=== PATIENT | male | born 1955 | race Caucasian/White ===

== ENCOUNTER 2019-02-14 11:30 | Inpatient (IN) ==
[2019-02-28] MEDS ORDERED: Nasal Sanitizer POPSWAB ampule 3 AMP (Nozin) PREOP DOSE ENOS SCH (06:00)
[2019-02-28] MEDS ORDERED: Ketorolac Inj 30 MG, Morphine Inj (Ortho Cocktail) 4 MG, BUPivacaine Inj 0.25% PF 150 MG SPLASH ONE ×3 (06:00)
[2019-02-28] MEDS ORDERED: Lactated Ringers 1,000 ML PRIMARY IV SCH ×2 (06:00→12:15)
[2019-02-28] MEDS ORDERED: LIDOCAINE W/ SODIUM BICARB 0.5 ML SYR SUBD ONE (06:00)
[2019-02-28] MEDS ORDERED: BUPivacaine Liposome/PF (Exparel) Inj 20ml vial INFIL ONE ×2 (06:00→06:57)
[2019-02-28] MEDS ORDERED: ceFAZolin Inj 2gm (Premix) 2 GM/50 ML BAG IV ONE ×2 (06:00→06:17)
[2019-02-28] MEDS ORDERED: Tranexamic Acid 1,000 MG in Sodium Chloride 0.9% 100 ML IV SCH (06:00)
[2019-02-28] MEDS ORDERED: LIDOCAINE W/ SODIUM BICARB 0.5 ML SYR ONE ×2 (06:09→07:30)
[2019-02-28] MEDS ORDERED: Lactated Ringers 1,000 ML PRIMARY IV ONE ×2 (06:09→10:19)
[2019-02-28] MEDS ORDERED: Sodium Chloride 0.9% vial 20 ML ONE (06:56)
[2019-02-28] MEDS ORDERED: BACITRACIN 50,000 UNIT VIAL IRRIG ONE (06:57)
[2019-02-28] MEDS ORDERED: Sodium Chloride 0.9% 500 ML ONE (07:17)
[2019-02-28 07:21] LABS: BILIRUBIN,URINE NEGATIVE (NEG); CLARITY,URINE CLEAR (CLEAR); COLOR,URINE YELLOW (Y); GLUCOSE, URINE (UA) NEGATIVE (NEG); OCCULT BLOOD,URINE SMALL (NEG); PH,URINE 5.5 (5.0-8.5); PROTEIN,URINE NEGATIVE (NEG); UROBILINOGEN,URINE 0.2 EU/dL (0.2)
[2019-02-28] MEDS ORDERED: MIDAZOLAM HCL 2 MG/2 ML VIAL ONE (07:26)
[2019-02-28] MEDS ORDERED: fentaNYL Inj 100 MCG/2 ML VIAL ONE (07:26)
[2019-02-28 07:30] LABS: BACTERIA,URINE RARE; URINE SAMPLE TYPE CLEAN CATCH URINE; WBC,URINE 0
[2019-02-28] MEDS ORDERED: BUPivacaine Inj 0.5% PF (5mg/ml) 30ml vial ONE (07:31)
[2019-02-28] MEDS ORDERED: BUPIVACAINE SPINAL 7.5 MG/1 ML - 2 ML IV ONE (07:44)
[2019-02-28] MEDS ORDERED: EPINEPHrine Inj (1:1,000) 1 mg/ml amp ONE (07:45)
[2019-02-28] MEDS ORDERED: LIDOCAINE HCL 2 % 10 ML JELLY URO-JECT TOPICAL PRN (07:48)
[2019-02-28] MEDS ORDERED: LIDOCAINE HCL 2 % 10 ML JELLY URO-JECT TOPICAL ONE (07:49)
[2019-02-28] MEDS ORDERED: Propofol 2,000 MG/200 ML VIAL IV ONE (08:04)
[2019-02-28] MEDS ORDERED: ePHEDrine Inj 50 MG/ML AMP ONE (08:32)
[2019-02-28] MEDS ORDERED: Sodium Chloride 0.9% vial 40 ML ONE (08:42)
[2019-02-28] MEDS ORDERED: PHENYLEPHRINE 10,000 MCG/1 ML VIAL ONE (09:06)
[2019-02-28] MEDS ORDERED: TRANEXAMIC ACID 1,000 MG / 10 ML VIAL ONE (11:18)
[2019-02-28] MEDS ORDERED: PROPOFOL 10 MG/1 ML (200 MG/20 ML) VIAL IV ONE (11:44)
[2019-02-28] MEDS ORDERED: HYDROmorphone 2 MG/1 ML ONE (12:03)
[2019-02-28] MEDS: HYDROmorphone 2 MG/1 ML IVP PRN ×2 (12:07→12:31)
--- NOTE | 2019-02-28 12:11 | CRNA.PROGR ---
Anesthesia Time - Procedure/Recovery Time Start Date: 02/28/19 End Date: 02/28/19 Anesthesia : Time In: 08:08 Anesthesia : Time Out: 11:53 Anesthesia : Total Time: 225 - Block Time Start Date: 02/28/19 End Date: 02/28/19 PreOp Block : Time In: 07:45 PreOp Block : Time Out: 08:00 PreOp Block : Total Time: 15 - Total Anesthesia Time Total Anesthesia Time (minutes): 240 - Other Weight: 96.162 kg Height: 5 ft 7 in Body Mass Index (BMI): 33.2 Anesthesia Type: Intrathecal, Femerol Nerve Block, General Anesthesia : LMA
--- NOTE | 2019-02-28 12:12 | CRNA.PROCE ---
Nerve Block Documentation - - Type of Nerve Block Used: Right Adductor Canal Nerve Block Position for Nerve Block: Supine Moniters Used During Block: EKG, SPO2, NIBP Oxygen Supplemented: Yes Sedation Used - Enter Amount in Comment Field [ANES.SEDAT]: Midazolam (mg): Yes (2), Fentanyl (mcg): Yes (100) Skin Prep Used: ChloroPrep Draped: No Technique: Ultrasound Nerve Block Needle Used: 100 mm ProBlk II Local Anesthetic - Enter Amt in Comment Field [ANES.LOCNB]: 0.5 % Bupivacaine Plain (mL): Yes - - PreOp Block : Time In: 07:45 PreOp Block : Time Out: 08:00 Anesthesia Time - Block Time PreOp Block : Time In: 07:45 PreOp Block : Time Out: 08:00 - Other Weight: 96.162 kg Height: 5 ft 7 in Body Mass Index (BMI): 33.2
--- NOTE | 2019-02-28 12:12 | CRNA.PROGR ---
Anesthesia Recovery Phase I - Post Anesthesia Evaluation Patient's Condition on Arrival in Phase I: Stable Pain Level: 6 (AWAKE)
[2019-02-28] MEDS ORDERED: Meperidine Inj 50 MG/ML CARPUJECT IVP PRN (12:13)
[2019-02-28] MEDS ORDERED: HYDROmorphone 2 MG/1 ML IVP PRN ×2 (12:13→13:30)
[2019-02-28] MEDS ORDERED: LIDOCAINE W/ SODIUM BICARB 0.5 ML SYR SUBD PRN (12:13)
[2019-02-28] MEDS ORDERED: Metoclopramide Inj 10 MG/2 ML VIAL IVP PRN (12:13)
[2019-02-28] MEDS ORDERED: fentaNYL Inj 100 MCG/2 ML VIAL IVP PRN (12:13)
[2019-02-28] MEDS ORDERED: MORPHINE SULFATE 2 MG/1 ML IVP PRN (12:13)
[2019-02-28] MEDS ORDERED: ONDANSETRON 4 MG/2 ML VIAL IVP PRN ×2 (12:13→13:30)
[2019-02-28] MEDS ORDERED: ACETAMINOPHEN 325 MG TABLET PO PRN (13:30)
[2019-02-28] MEDS ORDERED: Prochlorperazine Tab 10 MG TAB PO PRN (13:30)
[2019-02-28] MEDS ORDERED: MAG HYDROX/AL HYDROX/SIMETH 30 ML SUSP PO PRN (13:30)
[2019-02-28] MEDS ORDERED: diphenhydrAMINE 25 MG CAPSULE PO PRN (13:30)
[2019-02-28] MEDS ORDERED: UBIDECARENONE PO SCH (13:30)
[2019-02-28] MEDS ORDERED: CALCIUM CARBONATE 500 MG (TUMS) CHEWABLE TABLET PO PRN (13:30)
[2019-02-28] MEDS ORDERED: PSYLLIUM HUSK 0.52 GM PO SCH (13:30)
[2019-02-28] MEDS ORDERED: Ondansetron ODT Tab 8 MG TAB PO PRN (13:30)
[2019-02-28] MEDS ORDERED: BISACODYL 5 MG TABLET PO PRN (13:30)
[2019-02-28] MEDS ORDERED: SAW PALMETTO 80 MG PO SCH (13:30)
[2019-02-28] MEDS ORDERED: BISACODYL 10 MG SUPPOSITORY RECTAL PRN (13:30)
--- NOTE | 2019-02-28 13:38 | DI ---
RIGHT KNEE, 02/28/2019 8:05 AM: Clinical History: Status post right knee replacement. Osteoarthritis. Previous Exam: 11/28/2018. Views: AP and lateral. Patient is status post right knee replacement. Prosthetic joint articulates normally. [place] patella is intact. Reading: Status post right knee replacement. The prosthetic joint articulates normally.
[2019-02-28] MEDS: Lactated Ringers 1,000 ML PRIMARY IV SCH (14:30)
[2019-02-28] MEDS: LISINOPRIL 20 MG TABLET PO SCH (14:30)
[2019-02-28] MEDS: HYDROcodone-APAP 7.5 MG-325 MG TABLET PO PRN ×2 (14:31→20:35)
--- NOTE | 2019-02-28 14:38 | ORTHO.OP ---
- - -: See Dictated Operative Report Procedure Codes - Lower Extremity/Knee Procedures Primary Lower Extremity Procedure Code: 82783 : TKA (Julia FLORES assisted)
[2019-02-28] MEDS: [UNRECOGNIZED DRUG - OTHER] PO SCH (14:45)
[2019-02-28] MEDS: CITRACAL PO SCH (14:45)
--- NOTE | 2019-02-28 15:08 | PT AM DAY ---
Diagnosis : Right Total Knee Arthroplasty AM - Physical Therapy O: The patient was issued an IceMan Cold Therapy Unit and instructed in its proper use and care. P: No further therapy is indicated at this time. MTDD
--- NOTE | 2019-02-28 16:04 | CONSULT ---
Consult Note - Consult Reason for Consult: PostOp Consulation : Ortho Primary Care Provider: Garcia Stern MD HPI - History of Present Illness History of Present Illness: The very nice 64-year-old gentleman who underwent right knee surgery. He is doing well postop the only thing that bothers him is the Skelton and he can't wait to have it removed tomorrow. Denies chest pain nausea or vomiting Past Medical History Medical History: Hypertension, hyperlipidemia, osteoarthritis Tobacco Use: Former Smoker Do you dip or chew tobacco: No In the Past 12 Months, Have Used or Abuse Any of the Following Substance: None, Other (please comment) Review of Systems - Review of Systems All Systems: Reviewed & No Additional Complaints Except as Stated - Respiratory Respiratory: DENIES: Negative System Review, Cough, Sputum, Dyspnea At Rest, Dyspnea with Exertion, Pleuritic Pain, Hemoptysis, Wheezing, Other, See HPI - Cardiovascular Cardiovascular: DENIES: Negative System Review, Chest Pain, Edema, Syncope, Palpitations, Orthopnea, Paroxysmal Nocturnal Dyspnea, Other, See HPI - Gastrointestinal Gastrointestinal / Abdominal: DENIES: Negative System Review, Nausea, Vomiting, Diarrhea, Constipation, Abdominal Pain, Bloody Stool, Poor Appetite, Heartburn, Regurgitation, Bloating, Lactose Intolerance, Melena, Bright Red Blood per Rectum, Other, See HPI Medication / Allergies Home Medications: Home Medications Medication Instructions Recorded Confirmed Multivitamin with Minerals [One 1 ea PO DAILY 02/17/12 02/28/19 Daily] [place]-3 Fatty Acids/Fish Oil [Fish 1 ea PO DAILY 02/17/12 02/27/19 Oil 1,000 mg Capsule] Psyllium Husk [Fiber] 0.52 gm PO DAILY 02/17/12 02/27/19 [place] 80 mg PO DAILY 02/17/12 02/27/19 Citracal + D Caplet 1 ea PO DAILY tab 03/20/14 02/27/19 Ubidecarenone [Coq-10] 1 cap PO DAILY cap 03/20/14 02/27/19 Melatonin/Pyridoxine [Melatonin 5 0.5 - 1.5 tab PO QHS #30 tab 01/18/17 02/27/19 mg Tablet] atorvastatin 20 mg tablet 10 mg PO QD #45 tab 10/29/17 02/27/19 lisinopril 40 mg tablet 40 mg PO DAILY #90 tab 12/27/18 02/27/19 hydrocodone 7.5 mg-acetaminophen 1 - 2 tab PO .HS PRN #30 tab 02/02/19 02/27/19 325 mg tablet Allergies/Adverse Reactions: Allergies Allergy/AdvReac Type Severity Reaction Status Date / Time No Known Allergies Allergy Verified 02/27/19 08:40 Exam - Vitals Vital Signs: Vital Signs Temperature 98.2 F Temperature Source Temporal Artery Scan Pulse Rate [Pulse Oximeter] 100 Pulse Rate [Apical] 90 Pulse Rate 84 Respiratory Rate 15 Blood Pressure [Left Arm] 106/69 Blood Pressure [Right Arm] 105/75 Blood Pressure 129/70 Pulse Ox 95 Oxygen Flow Rate 2 Oxygen Delivery Method Nasal Cannula Height 5 ft 7 in Weight 212 lb - General General Appearance: No Acute Distress, Cooperative - Respiratory Respiratory Exam: POSITIVE: Clear to Auscultation - Bilaterally, Breathing Non Labored, Normal To Percussion, Normal to Percussion and Palpation - Cardiovascular Cardiovascular Exam: POSITIVE: RRR, No Murmur, No Clicks, No Gallops, No Rubs, PMI Non-Displaced - GI/Abdominal GI/Abdominal Exam: POSITIVE: Normal Bowel Sounds, Non Tender, Non Distended, Soft, No Masses, No Hepatomegaly, No Splenomegaly, No Organomegaly - Extremities Extremities Exam: POSITIVE: No Clubbing Present, No Edema Present, No Cyanosis Present Assessment and Plan - Patient Problems (1) Arthritis of right knee Current Visit: No Status: Acute Comment: At his posterior knee replacement defer to Dr. Manning for PTOT orders and pain control. Code(s): M17.11 - Unilateral primary osteoarthritis, right knee (2) Benign essential hypertension Current Visit: No Status: Chronic Onset Date: 03/17/12 Comment: Continue current medications stable Code(s): I10 - Essential (primary) hypertension (3) Hyperlipidemia Current Visit: No Status: Chronic Onset Date: 01/29/15 Comment: Continue current medications stable Code(s): E78.5 - Hyperlipidemia, unspecified Qualifiers: Hyperlipidemia type: mixed hyperlipidemia Qualified Code(s): E78.2 - Mixed hyperlipidemia
[2019-02-28] MEDS: ceFAZolin Inj 2gm (Premix) 2 GM/50 ML BAG IV SCH (16:13)
--- NOTE | 2019-02-28 17:54 | ORTHO.PROG ---
Last Taken Vital Signs: Vital Signs - Last Taken Temperature 98.2 F 02/28/19 16:00 Pulse Rate 100 02/28/19 16:00 Respiratory Rate 15 02/28/19 16:00 Blood Pressure 106/69 02/28/19 16:00 Pulse Ox 95 02/28/19 16:00 Subjective: Patient doing reasonably well after right total knee replacement some soreness a nd achiness Objective: Dressing is clean and dry Provine has no active fluid in it. I has good motor of the foot and ankle. His ice Man cooling machine is in place. Abnormal Lab Results (Last 24 Hours) Range/Units 02/28/19 07:10 Urine Occult Blood (NEG) Small H Vital Signs (24 hrs) 02/28/19 06:49 02/28/19 12:10 02/28/19 13:45 Temperature 98.3 F 96.2 F L 98.2 F Pulse Rate 108 H 84 Pulse Rate [Apical] Pulse Rate [Pulse Oximeter] 94 Respiratory Rate 18 16 16 Blood Pressure 143/86 129/70 Blood Pressure [Left Arm] Blood Pressure [Right Arm] 105/75 Pulse Ox 97 93 96 02/28/19 14:05 02/28/19 16:00 Temperature 97.5 F 98.2 F Pulse Rate Pulse Rate [Apical] 90 Pulse Rate [Pulse Oximeter] 90 100 Respiratory Rate 16 15 Blood Pressure Blood Pressure [Left Arm] 106/69 Blood Pressure [Right Arm] 105/75 Pulse Ox 95 95 X-rays look good good alignment and position of components Assessment: Right total knee replacement doing well Plan: Patient will continue with physical therapy and occupational therapy. Patient stated at the bedside today with therapy. Patient will have the Skelton removed tomorrow. Continue with [facility] for cryo-therapy. Patient has oral and IV pain medication ordered for pain control. DVT prophylaxis with aspirin and pneumatic sequentials.
[2019-02-28] MEDS: ATORVASTATIN 20 MG TABLET PO SCH (20:34)
[2019-02-28] MEDS: Zolpidem Tab 5 MG TAB PO PRN (20:45)
[2019-02-28] MEDS: DOCUSATE 100 MG CAPSULE PO SCH (21:00)
[2019-03-01] MEDS: HYDROcodone-APAP 7.5 MG-325 MG TABLET PO PRN ×5 (00:30→17:53)
[2019-03-01] MEDS: ceFAZolin Inj 2gm (Premix) 2 GM/50 ML BAG IV SCH (01:25)
[2019-03-01 05:03] LABS: Hematocrit [HCT] 37.2 % (42.0-52.0); MEAN CORPUSCULAR HEMOGLOBIN 29.9 PG (27-31); MEAN CORPUSCULAR HGB CONC 32.3 g/dL (33-37); MEAN CORPUSCULAR VOLUME 92.8 FL (80-90); MEAN PLATELET VOLUME 11.2 FL (7.4-12.2); RED BLOOD COUNT 4.01 10^6/uL (4.70-6.10)
[2019-03-01 05:07] LABS: BLOOD UREA NITROGEN 18 mg/dL (7-22); BUN/CREATININE RATIO 25.71 (6-20)
--- NOTE | 2019-03-01 08:11 | ORTHO.PROG ---
Last Taken Vital Signs: Vital Signs - Last Taken Temperature 97.6 F 03/01/19 04:04 Pulse Rate 92 03/01/19 07:00 Respiratory Rate 18 03/01/19 07:00 Blood Pressure 122/72 03/01/19 04:04 Pulse Ox 93 03/01/19 05:22 Subjective: Skelton was bothering patient significantly last night doing well was able to urinate on her own. Objective: A dressing is clean and dry iceman is in place no significant evidence of drainage and the tube. Patient has good motor and sensory of the foot ankle and toes. Laboratory Results 03/01/19 03/01/19 04:06 04:06 WBC 8.93 RBC 4.01 L Hgb 12.0 L Hct 37.2 L MCV 92.8 H MCH 29.9 MCHC 32.3 L RDW Std Deviation 47.0 RDW Coeff of Enmanuel 14.3 Plt Count 183 MPV 11.2 Sodium 138 Potassium 4.3 Chloride 103 Carbon Dioxide 21 L Anion Gap 14 BUN 18 Creatinine 0.7 Estimated GFR > 60 BUN/Creatinine Ratio 25.71 H Glucose 107 Calculated Osmolality 287.0 Calcium 8.5 L Vital Signs (24 hrs) 02/28/19 12:10 02/28/19 13:45 02/28/19 14:05 Temperature 96.2 F L 98.2 F 97.5 F Pulse Rate 84 Pulse Rate [Apical] 90 Pulse Rate [Pulse Oximeter] 94 90 Respiratory Rate 16 16 16 Blood Pressure 129/70 Blood Pressure [Left Arm] Blood Pressure [Right Arm] 105/75 105/75 Pulse Ox 93 96 95 02/28/19 16:00 02/28/19 20:49 03/01/19 00:31 Temperature 98.2 F 98.6 F 97.4 F Pulse Rate Pulse Rate [Apical] Pulse Rate [Pulse Oximeter] 100 99 88 Respiratory Rate 15 20 20 Blood Pressure Blood Pressure [Left Arm] 106/69 122/74 113/73 Blood Pressure [Right Arm] Pulse Ox 95 88 99 03/01/19 04:04 03/01/19 05:22 03/01/19 07:00 Temperature 97.6 F Pulse Rate Pulse Rate [Apical] Pulse Rate [Pulse Oximeter] 92 92 Respiratory Rate 20 18 Blood Pressure Blood Pressure [Left Arm] 122/72 Blood Pressure [Right Arm] Pulse Ox 93 93 Assessment: Right total knee replacement doing well Plan: Continue with protection ice elevation a knee immobilizer since the patient had a femoral nerve block. Continue with therapy protection. DVT prophylaxis with pneumatic and sequentials. Patient will also be on aspirin
[2019-03-01] MEDS: Multivitamin Tab 1 TAB PO SCH (08:57)
[2019-03-01] MEDS: LISINOPRIL 20 MG TABLET PO SCH (08:57)
[2019-03-01] MEDS: ASPIRIN 325 MG EC TABLET PO SCH ×2 (08:58→20:36)
[2019-03-01] MEDS: Beta Carot W/Vit E,C,Min Tab 1 TAB TAB PO SCH (08:58)
[2019-03-01] MEDS: DOCUSATE 100 MG CAPSULE PO SCH ×2 (08:58→20:35)
--- NOTE | 2019-03-01 09:50 | PDOC(PROG) ---
Interval History: Patient is doing great no chest pain nausea or vomiting. He is happy about his Skelton being out he said it was really hard to get out of the chair and walk just for a little bit Objective : Data - Labs CBC and BMP: 03/01/19 04:06 03/01/19 04:06 Objective : Exam - General General Appearance: Cooperative - Respiratory Respiratory Exam: Clear to Auscultation - Bilaterally, Breathing Non Labored, Normal To Percussion, Normal to Percussion and Palpation - Cardiovascular Cardiovascular Exam: RRR, No Murmur, No Clicks, No Gallops, No Rubs, PMI Non- Displaced - GI/Abdominal GI/Abdominal Exam: Normal Bowel Sounds, Non Tender, Non Distended, Soft, No Masses, No Hepatomegaly, No Splenomegaly, No Organomegaly Assessment and Plan - Patient Problems (1) Benign essential hypertension Current Visit: No Status: Chronic Onset Date: 03/17/12 Comment: Stable at present time 131/81 Code(s): I10 - Essential (primary) hypertension (2) Hyperlipidemia Current Visit: No Status: Chronic Onset Date: 01/29/15 Comment: Stable continue current meds Code(s): E78.5 - Hyperlipidemia, unspecified Qualifiers: Hyperlipidemia type: mixed hyperlipidemia Qualified Code(s): E78.2 - Mixed hyperlipidemia (3) Arthritis of right knee Current Visit: No Status: Acute Comment: Status post right knee surgery deferred Dr. Manning and PT OT for rehabilitation Code(s): M17.11 - Unilateral primary osteoarthritis, right knee
--- NOTE | 2019-03-01 11:38 | PT.PROG ---
Progress Note Progress Note: S. Patient stated that he is in some pain this morning. O. Patient performed bed mobility to transfer from supine to standing at edge of bed, then ambulated 5 feet to the chair where he was left with alarm and call light. A. Patient tolerated ambulation fair, he struggled with pain, however was able to perform transfers with min assist. Patient would continue to benefit from skilled therapy to increase strength and endurance at this time. P. Continue POC.
[2019-03-01] MEDS: [UNRECOGNIZED DRUG - OTHER] PO SCH (12:17)
[2019-03-01] MEDS: CITRACAL PO SCH (12:17)
--- NOTE | 2019-03-01 16:51 | PT.PROG ---
Progress Note Progress Note: S: Pt was given a pain pill prior to the start of therapy today. He states that he is tired this afternoon, but feels better than he did this morning. O: Pt was brought from room down to the therapy gym. Therapeutic Exercise: 2x10 heel/quad slides 1x10 SAQ with half bolster 1x10 hip abduction/adduction 10 x STS with mod A x 2 Gait Training: Ambulated 50 ft Pt was brought back up to his room and transferred from wheelchair to bedside chair with min assist x2. Pt required verbral cuing to kick his right foot out before sitting down. A: Pt did well this afternoon. Was able to tolerated more exercise and ambulation this afternoon. P: Continue to work on transfers and ambulating with walker.
[2019-03-01] MEDS: Zolpidem Tab 5 MG TAB PO PRN (20:35)
[2019-03-01] MEDS: ATORVASTATIN 20 MG TABLET PO SCH (20:35)
[2019-03-02] MEDS: HYDROcodone-APAP 7.5 MG-325 MG TABLET PO PRN ×4 (01:05→23:08)
[2019-03-02 04:51] LABS: Hematocrit [HCT] 38.8 % (42.0-52.0); Hemoglobin [HGB] 12.7 g/dL (14.0-18.0); MEAN CORPUSCULAR HEMOGLOBIN 30.2 PG (27-31); MEAN CORPUSCULAR HGB CONC 32.7 g/dL (33-37); MEAN CORPUSCULAR VOLUME 92.4 FL (80-90); MEAN PLATELET VOLUME 11.4 FL (7.4-12.2); RED BLOOD COUNT 4.2 10^6/uL (4.70-6.10)
[2019-03-02 05:13] LABS: BLOOD UREA NITROGEN 13 mg/dL (7-22); BUN/CREATININE RATIO 18.57 (6-20)
[2019-03-02] MEDS: DOCUSATE 100 MG CAPSULE PO SCH ×2 (08:23→20:13)
[2019-03-02] MEDS: Multivitamin Tab 1 TAB PO SCH (08:23)
[2019-03-02] MEDS: LISINOPRIL 20 MG TABLET PO SCH (08:23)
[2019-03-02] MEDS: ASPIRIN 325 MG EC TABLET PO SCH ×2 (08:23→20:13)
[2019-03-02] MEDS: Beta Carot W/Vit E,C,Min Tab 1 TAB TAB PO SCH (08:24)
--- NOTE | 2019-03-02 10:10 | PTI REPORT ---
Thank you for the referral of Jose R Leonardo Daigle. He was seen on 02/28/19 for an inpatient evaluation status post right total knee arthroplasty. SUBJECTIVE: The patient is a 64-year-old male. The patient states that he is feeling tired today. The patient states that he currently does not have feeling in his leg. The patient lives in [place] with his and dog in a bi-level home with four stairs going from the garage to the lower level. From the outside there are 5-6 stairs to get into the home. The patient states that prior to surgery he would use a cane if his pain got really bad. The patient also states that for the last few weeks he was using an IROM brace to help him get around. Before that he had no problem with activities of daily living. The patient states he is hoping to no longer use an assistive device following this surgery. PAST MEDICAL HISTORY: Past medical history can be found in the patient's medical record. OBJECTIVE FINDINGS: General observations: The patient was supine in bed with head of bed elevated. Oxygen saturation while supine was 96%. Blood pressure was 107/70. Bed mobility: The patient transferred from supine to sit with mod assist for surgical leg to help move edge of bed. In sitting the patient's oxygen saturation was 88%. Blood pressure was 102/70. The patient was able to maintain good sitting position at edge of bed. The patient was able to transfer from sitting edge of bed to supine with mod assist x1 for management of surgical leg. Transfers: Gait belt was applied and walker was fitted for patient. The patient was educated on how to stand properly with reaching one arm behind on the bed and with one arm on the walker with the right knee kicked out. The patient was able to transfer from sit to stand with min assist x2 with hand hold assist on walker. In standing, oxygen saturation was 94%. Blood pressure was 117/71. The patient was able to maintain good standing position. The patient stood x10 minutes while holding conversation with PT. The patient was able to perform a stand to sit transfer with min assist x2. ASSESSMENT: Problem List: Pain in right knee Decreased passive and active range of motion of right knee Decreased strength in right knee Short-Term Goals: To be met by discharge from inpatient: Patient will be able to transfer from bed to stand independently. Patient will be able to ambulate 150 feet with walker, weight-bearing as tolerated. Patient will be able to ascend and descend 5 stairs independently. Long-Term Goals: To be met following discharge from inpatient: Patient may be a good candidate for outpatient therapy based on physician's orders. TREATMENT PLAN: Patient will be seen B.I.D during the week and one time per day over the weekend as an inpatient to address the above goals and objectives. INITIAL TREATMENT: Treatment today consisted of the initial evaluation followed by one unit of functional activity. The patient was fit for a knee immobilizer and was educated on how to put the immobilizer on and that he needs to wear it whenever he is up and walking around to protect his knee. Following treatment the patient's SCDs and IceMan were reapplied. Bed alarm was set and call light was placed within reach. Dictated by: KHURRAM James Supervised by: ILDA Friedman
[2019-03-02] MEDS: [UNRECOGNIZED DRUG - OTHER] PO SCH (10:22)
[2019-03-02] MEDS: CITRACAL PO SCH (10:22)
--- NOTE | 2019-03-02 11:29 | OTI REPORT ---
Thank you for the referral of Jose R Leonardo Evaristomelo. He was seen on 03/01/19 for an occupational therapy inpatient evaluation status post right total knee arthroplasty. SUBJECTIVE: The patient is a 64-year-old male who is being seen today secondary to having a right total knee replacement. He reports he has been in a lot of pain and he had a lot of difficulty walking over to the chair this morning. The patient lives in a bi-level home with his . He has a total of 12 stairs. He reports that prior to admission he was dressing self. They just put two new walk-in showers in their home with a seat in it. He states he has a higher toilet at home. The patient reports he is having a lot of difficulty with bending his knee and he has very minimal tingling in his foot this morning. PAST MEDICAL HISTORY: Past medical history can be found in the patient's medical record. OBJECTIVE FINDINGS: General observations: The patient was sitting in chair upon the therapist's arrival. The patient was grimacing in pain when taking the immobilizer off to bend knee to sit up in chair. In this chair he was not able to put his foot on the ground. Activities of daily living: The patient was educated and instructed in adaptive devices to assist with dressing if needed. The patient was issued a analytical strategist to don lower extremity clothing and to doff socks. We will look at a different type of sock aide for JC blair later. He reports he already has a shoe horn and a bath sponge at home. Transfers: The patient was moved to another chair that fit him better and he could sit closer to the floor. The patient needed a lot of verbal cueing and a lot of encouragement to move the right lower extremity. The patient needed mod assist to move to chair and needed max assist to sit. The patient stated his pain level went up to 10/10 upon transferring. The patient did get very emotional about his dog at home when moving and became tearful. Once in chair, he was instructed to do ankle pumps and his immobilizer was placed back on. ASSESSMENT: The patient appears to have a low pain tolerance. The patient did get quite emotional with movement and pain. Problem List: Increased pain/low pain tolerance Decreased ability to complete ADLs Decreased ability to complete functional transfers Short-Term Goals: To be met by discharge from inpatient: Patient will be able to dress self with modified independence. Patient will be able to complete a chair to toilet transfer with stand by assist. Patient will be able to complete a bed transfer with stand by assist. Long-Term Goals: To be met following discharge from inpatient: Patient will be independent and safe with all functional transfers and ADLs. TREATMENT PLAN: Patient will be seen B.I.D during the week and one time per day over the weekend as an inpatient to address the above goals and objectives. INITIAL TREATMENT: Treatment today consisted of the initial evaluation followed by the patient completing lower extremity dressing tasks with max assist to pull shorts from knee to waist level and min assist with use of analytical strategist. The patient may benefit from a hard sock aide later on for his compression hoses. Following treatment the patient was left in chair with chair alarm set and call light within reach. LEIGHA
--- NOTE | 2019-03-02 11:46 | OT.PROG ---
Progress Note Progress Note: Occupational Therapy S: Pt. reports that he has 6/10 knee pain prior to tx session. Pt. was just given pain medication. He is willing to participate in skilled therapy session this am. O: Pt. was sitting upright in chair upon arrival. He required mod. A to move to edge of chair in order to complete LE dressing. Pt. completed doffing and donning of socks with verbal cues and green material value added assessor and hard sock aid. Pt. required mod. A X 2 to stand from recliner chair with immobilizer in place. Pt. demonstrated the ability to ambulate X 40' with a slow pace with standard walker. Pt. was also able to complete a standing toileting task with CGA for safety. Following OT session, pt. transitioned to PT session. A: Pt. is improving with moving, however he continues to require extensive assistance with functional transfers, pain, dressing, and functional mobility. Pt. may possibly benefit from swing bed in order to improve independence and safety prior to discharge to home. P: Continue POC. TIRSO Stapleton/Tania
--- NOTE | 2019-03-02 12:08 | ORTHO.PROG ---
Last Taken Vital Signs: Vital Signs - Last Taken Temperature 97.2 F 03/02/19 06:53 Pulse Rate 94 03/02/19 06:53 Respiratory Rate 20 03/02/19 10:30 Blood Pressure 149/78 03/02/19 06:53 Pulse Ox 94 03/02/19 06:53 Subjective: Patient notes doing relatively well and is anxious to go home and would like to go home Objective: Dressing is clean and dry Provine a dressing is in place motor and sensory exam is nonfocal popliteal adductor hiatus or thigh pain. Laboratory Results 03/02/19 03/02/19 04:00 04:00 WBC 11.04 H RBC 4.20 L Hgb 12.7 L Hct 38.8 L MCV 92.4 H MCH 30.2 MCHC 32.7 L RDW Std Deviation 47.6 RDW Coeff of [place] 14.3 Plt Count 187 MPV 11.4 Sodium 140 Potassium 4.4 Chloride 105 Carbon Dioxide 24 Anion Gap 11 BUN 13 Creatinine 0.7 Estimated GFR > 60 BUN/Creatinine Ratio 18.57 Glucose 108 Calculated Osmolality 290.0 Calcium 9.1 Vital Signs (24 hrs) 03/01/19 13:00 03/01/19 16:51 03/01/19 19:00 Temperature 99.2 F 99.6 F Pulse Rate [Pulse Oximeter] 99 97 Respiratory Rate 16 12 20 Blood Pressure [Left Arm] Blood Pressure [Right Arm] 133/73 130/74 Pulse Ox 93 92 03/01/19 20:32 03/01/19 23:35 03/02/19 04:13 Temperature 97.8 F 97.5 F 98.3 F Pulse Rate [Pulse Oximeter] 111 H 105 H 91 Respiratory Rate 20 20 20 Blood Pressure [Left Arm] 141/76 132/78 135/83 Blood Pressure [Right Arm] Pulse Ox 94 94 93 03/02/19 06:53 03/02/19 10:30 Temperature 97.2 F Pulse Rate [Pulse Oximeter] 94 Respiratory Rate 20 20 Blood Pressure [Left Arm] 149/78 Blood Pressure [Right Arm] Pulse Ox 94 Assessment: Right total knee replacement doing well Plan: Continue with physical therapy and occupational therapy. Patient will continue with DVT prophylaxis with aspirin and pneumatic sequentials. Continue with pain medication oral and IV as needed. Patient will continue therapy when therapy feels he reaches goals needed to be able to get home and we can discharge him home or possible need to switch to swing bed.
--- NOTE | 2019-03-02 13:59 | PDOC(PROG) ---
Date of Service: 03/02/19 Time of Service: 13:45 Interval History: Subjective Patient was sitting in the chair denying complaint. Pain seemed to be controlled. He did have a bowel movement. No chest pain, no shortness of breath or nausea. Objective : Data - Labs CBC and BMP: 03/02/19 04:00 03/02/19 04:00 Objective : Exam - General General Appearance: No Acute Distress, Cooperative, Obese - Head Head Exam: Normal Inspection - Eye Eye Exam: Normal Appearance - ENT ENT Exam: Normal Exam - Neck Neck Exam: Normal Inspection - Respiratory Respiratory Exam: Clear to Auscultation - Bilaterally - Cardiovascular Cardiovascular Exam: Systolic Murmur - GI/Abdominal GI/Abdominal Exam: Normal Bowel Sounds, Non Tender, Non Distended, Soft, No Organomegaly - Rectal Rectal Exam: Deferred - External Exam: Deferred - Extremities Additional Extremities Exam Details: Dressing applied to the right leg. No edema on the left. - Back Back Exam: Normal Inspection - Neurological Neurological Exam: Alert, Oriented x 3, CN II-XII Intact, No Facial Droop, Moves All Extremities Equally - Psychiatric Psychiatric Exam: Normal Affect - Integumentary Integumentary Exam: Normal Color Assessment and Plan - Patient Problems (1) Arthritis of right knee Current Visit: No Status: Acute Comment: Status post right knee replacement. For DVT prophylaxis he is on aspirin. Pain seemed to be control. Code(s): M17.11 - Unilateral primary osteoarthritis, right knee (2) Benign essential hypertension Current Visit: No Status: Chronic Onset Date: 03/17/12 Comment: Same medication Code(s): I10 - Essential (primary) hypertension (3) Hyperlipidemia Current Visit: No Status: Chronic Onset Date: 01/29/15 Comment: Same med Code(s): E78.5 - Hyperlipidemia, unspecified Qualifiers: Hyperlipidemia type: mixed hyperlipidemia Qualified Code(s): E78.2 - Mixed hyperlipidemia
--- NOTE | 2019-03-02 16:42 | PT.PROG ---
Progress Note Progress Note: S: Pt stated that he is tired again this morning, but was ready for therapy. Pt reported that he received two pain pills before coming down to therapy this morning. O: Pts immobilizer was applied before pt transferred from bed side chair to standing with mod A x1 with ELECTRO MECHANICAL TECHNOLOGIST x2 on walker. Pt ambulated from room to the elevator (approx. 50 ft) before transferring to the wheelchair. Pts immobilizer and ANDRE wrap were removed and heat was applied to knee for 20 minutes. Therapeutic Exercise: x10 heelsides x10 SAQ with 1/2 bolster x10 SLR with mod A x1 x10 hip abduction with mod A x1 x10 each way of 4 way ankle pumps Pts ANDRE wrap and immobilizer reapplied and pt transferred from sit to stand with mod A x2. Pt ambulated 50 ft with min A x2 with ELECTRO MECHANICAL TECHNOLOGIST x2 on walker. Pt transferred to wheelchair with min A x2 and returned to room. Pt transferred from wheelchair to bedside chair with min A x2 with ELECTRO MECHANICAL TECHNOLOGIST x2 on walker. Iceman was applied, call light was placed in reach and chair alarm was set. A: Pt continues to progress in therapy. He needs assistance when performing sit to stand transfers to help with the initial standing or sitting. He also requires verbal cues for a reminder of proper hand placement. P: Continue to see pt twice a day to work on quad control and ROM.
--- NOTE | 2019-03-02 16:46 | OT.PROG ---
Progress Note Progress Note: Occupational Therapy S: Pt. reports that he is doing well. He feels he is making improvements. O: Treatment consisted of functional activities to include functional sit to stand transfers from recliner and w/c with min.-mod. A., ambulation X 15', and a toileting task with CGA. Following OT, pt. transitioned to PT session. A: Pt. moved a little faster this afternoon and also required less assistance with functional transfers. P: Continue POC. TIRSO Stapleton/Tania
--- NOTE | 2019-03-02 16:50 | PT.PROG ---
Progress Note Progress Note: S: Pt states that he doesn't feel as tired this afternoon. He states that he received two pain pills about 20 minutes before therapy came to get him. O: Pt transferred from bed side chair to wheelchair with min A x2 and ACCOUNT LIAISON x2 on walker. He was brought down to therapy where his immobilizer and ANDRE wrap were removed for heat to be applied for 20 minutes. Therapeutic Activity: x10 heelsides x10 SAQ with 1/2 bolster x10 SLR with min A x1 x10 each 4-way ankle pumps with red band x10 hip abduction with min A x1 x5 sit to stands Pt ambulated 60 ft with min A x1 and ACCOUNT LIAISON on walker. Pt transferred from walker to wheelchair with mod A x1 and returned to room. He transferred from wheelchair to bed side chair with min A x2 and ACCOUNT LIAISON on walker. Pts iceman was reapplied, call light left in reach and chair alarm was set. A: Continues to lack appropriate quad control and ROM in order to be discharged. P: Continue to see pt 2x a day to work on quad strengthening and ROM.
[2019-03-02] MEDS: ATORVASTATIN 20 MG TABLET PO SCH (20:12)
[2019-03-02] MEDS: Lactated Ringers 1,000 ML PRIMARY IV SCH (23:27)
[2019-03-03 06:20] LABS: Hematocrit [HCT] 36.7 % (42.0-52.0); Hemoglobin [HGB] 11.9 g/dL (14.0-18.0); MEAN CORPUSCULAR HEMOGLOBIN 29.8 PG (27-31); MEAN CORPUSCULAR HGB CONC 32.4 g/dL (33-37); MEAN PLATELET VOLUME 11.2 FL (7.4-12.2); RED BLOOD COUNT 3.99 10^6/uL (4.70-6.10)
[2019-03-03 06:31] LABS: BLOOD UREA NITROGEN 17 mg/dL (7-22); BUN/CREATININE RATIO 24.28 (6-20)
[2019-03-03] MEDS: LISINOPRIL 20 MG TABLET PO SCH (08:29)
[2019-03-03] MEDS: Multivitamin Tab 1 TAB PO SCH (08:29)
[2019-03-03] MEDS: Beta Carot W/Vit E,C,Min Tab 1 TAB TAB PO SCH (08:30)
[2019-03-03] MEDS: HYDROcodone-APAP 7.5 MG-325 MG TABLET PO PRN ×2 (08:30→13:17)
[2019-03-03] MEDS: ASPIRIN 325 MG EC TABLET PO SCH ×2 (08:30→20:59)
[2019-03-03] MEDS: DOCUSATE 100 MG CAPSULE PO SCH ×2 (08:30→21:00)
--- NOTE | 2019-03-03 10:59 | OT.PROG ---
Progress Note Progress Note: S: pt stated he wishes he could bend his knee a little more. He had an "ok' night and he doesn't have much of an appetite. O: pt was seen in his room today and was unable to control LE in a slow controlled manner coming down from reclined position from chair. He then completed sit to stand with min A and completed toileting activity Ind. He completed functional transfer apprx 60 ft before sitting in w/c and transfer down to therapy. He completed x1 more sit to stand with min A and bed mobility min A. He received moist heat to LE. A: pt may continue to benefit from therapy, possible SB, to progress with function and mobility of LE. He needs to demonstrate an increase in knee flex. P: continue per pOC.
--- NOTE | 2019-03-03 15:39 | PT AM DAY ---
Diagnosis : Right Total Knee Arthroplasty AM - Physical Therapy S: The patient reports no new changes. O: The patient received an application of moist heat pack x20 minutes including set up followed by micro-current massage to the right knee. He performed open chain and closed chain exercises. We are having quite a bit of difficulty getting to 75 degrees of motion due to pain. He can perform sit to stands with a lot of coaching. A: The therapist believes the patient's knee looks good and everything is going well. His ability to deal with some of these issues is limited due to his personality, but we will work through it with a little extra time and coaching. P: Continue seeing patient BID during the week and one time per day over the weekend for transfers, ambulation, and range of motion/strengthening exercises. LEIGHA
--- NOTE | 2019-03-03 16:46 | OT.PROG ---
Progress Note Progress Note: Occupational Therapy S: Pt. reports that he is doing better today. O: Treatment consisted of therapeutic exercise with a focus on UE strengthening to assist with functional transfers and functional mobility with walker and ADLs. Pt. completed B UE strengthening for horizontal abduction, scap. squeezes, shoulder extension, adduction, triceps extension, rows, internal rotation, external rotation, and biceps x 10-15 each. A: Pt. tolerated treatment well. Continue to progress with skilled therapy with a focus on functional mobility and ADLs. P: Continue POC. TIRSO Stapleton/Taina
--- NOTE | 2019-03-03 16:56 | PT.PROG ---
Progress Note Progress Note: S: pt reports he is still struggling to bend his knee. O: nsg okay'd prior to PT. min A x 1 for sit to stand transfer with walker. his immobilizer and ANDRE wrap were removed and pt ambulated down to therapy gym 150 feet with CGA x 1 and walker. MHP x 20 mins. Therapeutic Ex: x10 heelsides x2 (1 set with gait belt for AAROM, 1 set ind) x10 SAQ with bolster x10 SLR with quad sets and 3 negatives x10 each 4-way ankle pumps with red band x10 hip abduction x10 sit to stands w CGA x 1 and walker PROM in seated R knee into flexion Pt ambulated 70 ft with CGA x1 and walker. transported back to room in w/c. pt was transferred to chair , Pts iceman was reapplied, call light left in reach and chair alarm was set. A: pt demo improved quad control today. improvement in ROM 75 degrees PROM. 60 degrees AROM. P:cont per POC.
--- NOTE | 2019-03-03 17:15 | PDOC(PROG) ---
Date of Service: 03/03/19 Time of Service: 17:15 Interval History: Subjective Patient was sitting in the chair does not appear in distress. Denying symptoms. Pain seemed to be controlled. no Nausea, no vomiting no chest pain and no dizziness. Objective : Data - Labs CBC and BMP: 03/03/19 05:40 03/03/19 05:40 Objective : Exam - General General Appearance: No Acute Distress, Cooperative - Head Head Exam: Normal Inspection - Eye Eye Exam: Normal Appearance - ENT ENT Exam: Normal Exam - Neck Neck Exam: Normal Inspection - Respiratory Respiratory Exam: Clear to Auscultation - Bilaterally - Cardiovascular Cardiovascular Exam: RRR - GI/Abdominal GI/Abdominal Exam: Normal Bowel Sounds, Non Tender, Non Distended, Soft, No Organomegaly - Rectal Rectal Exam: Deferred - External Exam: Deferred - Extremities Additional Extremities Exam Details: Dressing applied to the right leg. - Back Back Exam: Normal Inspection - Neurological Neurological Exam: Alert, Oriented x 3, CN II-XII Intact, No Facial Droop, Speech Intact / Clear, Moves All Extremities Equally - Psychiatric Psychiatric Exam: Normal Affect Assessment and Plan - Patient Problems (1) Status post right knee replacement Current Visit: Yes Status: Acute Comment: Continue PT and OT. For DVT prophylaxis he is on aspirin. He i still weak so there is a plan for him to switch to swing bed tomorrow and continue physical therapy over the weekend. Code(s): Z96.651 - Presence of right artificial knee joint (2) Benign essential hypertension Current Visit: No Status: Chronic Onset Date: 03/17/12 Comment: Same medications. We'll watch his blood pressure. Code(s): I10 - Essential (primary) hypertension (3) Hyperlipidemia Current Visit: No Status: Chronic Onset Date: 01/29/15 Comment: Same med Code(s): E78.5 - Hyperlipidemia, unspecified Qualifiers: Hyperlipidemia type: mixed hyperlipidemia Qualified Code(s): E78.2 - Mixed hyperlipidemia
--- NOTE | 2019-03-03 18:00 | ORTHO.PROG ---
Last Taken Vital Signs: Vital Signs - Last Taken Temperature 98.6 F 03/03/19 16:50 Pulse Rate 89 03/03/19 16:50 Respiratory Rate 16 03/03/19 16:50 Blood Pressure 93/54 03/03/19 16:50 Pulse Ox 91 03/03/19 16:50 Subjective: Patient doing well has gained with motion today Objective: Examination shows that the leg has a mild amount of swelling distally dressing is applied placed no active drainage. Patient has a negative pressure device on over the incision. Motor and sensory exam is nonfocal distally. Physical therapy noted flexion to 78 us afternoon with full extension Laboratory Results 03/03/19 03/03/19 05:40 05:40 WBC 9.90 RBC 3.99 L Hgb 11.9 L Hct 36.7 L MCV 92.0 H MCH 29.8 MCHC 32.4 L RDW Std Deviation 47.1 RDW Coeff of Enmanuel 14.3 Plt Count 192 MPV 11.2 Sodium 138 Potassium 4.3 Chloride 104 Carbon Dioxide 23 Anion Gap 11 BUN 17 Creatinine 0.7 Estimated GFR > 60 BUN/Creatinine Ratio 24.28 H Glucose 96 Calculated Osmolality 287.0 Calcium 8.9 Vital Signs (24 hrs) 03/02/19 19:00 03/02/19 21:00 03/03/19 00:40 Temperature 97.8 F 97.6 F Pulse Rate [Pulse Oximeter] 111 H 111 H 95 Respiratory Rate 20 20 Blood Pressure [Left Arm] 135/81 127/76 Blood Pressure [Right Arm] Pulse Ox 93 95 03/03/19 02:48 03/03/19 07:27 03/03/19 13:00 Temperature 97.6 F 98.7 F Pulse Rate [Pulse Oximeter] 94 94 97 Respiratory Rate 14 16 16 Blood Pressure [Left Arm] 139/78 132/71 111/53 Blood Pressure [Right Arm] Pulse Ox 101 92 03/03/19 16:50 Temperature 98.6 F Pulse Rate [Pulse Oximeter] 89 Respiratory Rate 16 Blood Pressure [Left Arm] Blood Pressure [Right Arm] 93/54 Pulse Ox 91 Assessment: Right total knee replacement doing well Plan: Continue with current plan of DVT prophylaxis pain control physical therapy and occupational therapy.
[2019-03-03] MEDS: ATORVASTATIN 20 MG TABLET PO SCH (21:00)
[2019-03-03] MEDS: IBUPROFEN 400 MG TABLET PO PRN (21:23)
[2019-03-03] MEDS: [UNRECOGNIZED DRUG - OTHER] PO SCH (22:07)
[2019-03-03] MEDS: CITRACAL PO SCH (22:07)
[2019-03-04] MEDS: IBUPROFEN 400 MG TABLET PO PRN ×2 (03:44→13:29)
[2019-03-04 07:10] VITALS: RESP 14
[2019-03-04] MEDS: Multivitamin Tab 1 TAB PO SCH (08:19)
[2019-03-04] MEDS: Beta Carot W/Vit E,C,Min Tab 1 TAB TAB PO SCH (08:19)
[2019-03-04] MEDS: HYDROcodone-APAP 7.5 MG-325 MG TABLET PO PRN (08:20)
[2019-03-04] MEDS: LISINOPRIL 20 MG TABLET PO SCH (08:20)
[2019-03-04] MEDS: ASPIRIN 325 MG EC TABLET PO SCH (08:20)
[2019-03-04] MEDS: DOCUSATE 100 MG CAPSULE PO SCH (08:20)
--- NOTE | 2019-03-04 08:57 | DCSUMMARY ---
Hospitalization Summary Admit Date: 02/28/2019 Discharge Date: 03/04/19 Hospital Course: Discharge diagnoses 1. Status post right knee replacement 2. History of hypertension 3. History of hyperlipidemia 4. History of osteoarthritis Hospital course This is a 64 years old male with medical history significant for history of hypertension, hyperlipidemia, osteoarthritis who came into the hospital to have right knee replacement and was done by Dr. Manning the hospitalist service were consulted for management of medical issues postoperatively. We continued with his usual medication. His postoperative course was uneventful. He continued to feel weak and needed more physical therapy. So his status was switched to swing bed status to continue physical therapy. Discharge instruction Diet regular Activity as tolerated Medications Active Medications Acetaminophen (Tylenol) 325 - 650 mg PO Q4H PRN PRN Reason: pain or fever Hydrocodone Bitart/Acetaminophen (Tunica 7.5/325 Tab) 1 - 2 tab PO Q4H PRN PRN Reason: Pain Last Admin: 03/04/19 08:20 Dose: 2 tab Documented by: Al Hydroxide/Mg Hydroxide (Mylanta Liquid) 10 - 20 ml PO Q6H PRN PRN Reason: Indigestion Aspirin (Aspirin Ec) 325 mg PO BID [facility] Last Admin: 03/04/19 08:20 Dose: 325 mg Documented by: Atorvastatin Calcium (Lipitor) 10 mg PO BEDTIME [facility] Last Admin: 03/03/19 21:00 Dose: 10 mg Documented by: Bisacodyl (Dulcolax Tab) 5 mg PO BID PRN PRN Reason: Constipation Bisacodyl (Bisac-Evac Supp) 10 mg RECTAL ONCE PRN PRN Reason: Constipation Calcium Carbonate (Tums) 1 - 2 tab PO Q4H PRN PRN Reason: Indigestion Calcium/Vitamin D (Calcium 600mg + D 400u Tab) 1 tab PO DAILY [facility] Last Admin: 03/04/19 08:20 Dose: 1 tab Documented by: Diphenhydramine HCl (Benadryl) 25 - 50 mg PO Q4H PRN PRN Reason: Itching Last Admin: 03/03/19 21:24 Dose: 50 mg Documented by: Docusate Sodium (Colace) 100 mg PO BID [facility] Last Admin: 03/04/19 08:20 Dose: 100 mg Documented by: Hydromorphone HCl (Dilaudid Inj) 1 mg IVP Q1H PRN PRN Reason: Moderate to Severe Pain Last Admin: 02/28/19 20:48 Dose: 1 mg Documented by: Sodium Chloride (Normal Saline 0.9%) 25 mls @ 200 mls/hr IV .Post Infusion PRN PRN Reason: No Primary IV for Flush ONLY Ibuprofen (Motrin) 400 mg PO Q6H PRN PRN Reason: Pain Last Admin: 03/04/19 03:44 Dose: 400 mg Documented by: Lisinopril (Prinivil) 40 mg PO DAILY [facility] Last Admin: 03/04/19 08:20 Dose: 40 mg Documented by: Multivitamins Therapeutic (Thera Tab) 1 tab PO DAILY [facility] Last Admin: 03/04/19 08:19 Dose: 1 tab Documented by: Multivitamins/Minerals (Ocuvite Tab) 1 tab PO DAILY [facility] Last Admin: 03/04/19 08:19 Dose: 1 tab Documented by: Ondansetron HCl (Zofran Inj) 4 mg IVP Q4H PRN PRN Reason: NAUSEA / VOMITING Ondansetron HCl (Zofran Odt) 8 mg PO Q6H PRN PRN Reason: NAUSEA Prochlorperazine Maleate (Compazine) 10 mg PO Q6H PRN PRN Reason: NAUSEA Zolpidem Tartrate (Ambien) 5 mg PO BEDTIME PRN PRN Reason: Insomnia Last Admin: 03/01/19 20:35 Dose: 5 mg Documented by: Follow-up patient status will be switched to swing bed status continue physical therapy. Exam - Vitals Vital Signs: Vital Signs Temperature 97.9 F Temperature Source Oral Pulse Rate [Pulse Oximeter] 87 Pulse Rate [Apical] 90 Pulse Rate 84 Respiratory Rate 14 Blood Pressure [Left Arm] 114/76 Blood Pressure [Right Arm] 93/54 Blood Pressure 129/70 Pulse Ox 93 Oxygen Flow Rate 2 Oxygen Delivery Method Room Air Height 5 ft 7 in Weight 212 lb - General General Appearance: No Acute Distress, Cooperative - Head Head Exam: Normal Inspection - Eye Eye Exam: POSITIVE: Normal Appearance - ENT ENT Exam: POSITIVE: Normal Exam - Neck Neck Exam: Normal Inspection - Respiratory Respiratory Exam: POSITIVE: Clear to Auscultation - Bilaterally - Cardiovascular Cardiovascular Exam: POSITIVE: RRR - GI/Abdominal GI/Abdominal Exam: POSITIVE: Normal Bowel Sounds, Non Tender, Non Distended, Soft, No Organomegaly - Rectal Rectal Exam: POSITIVE: Deferred - External Exam: POSITIVE: Deferred - Extremities Additional Extremities Exam Details: Dressing applied to the right knee. - Back Back Exam: POSITIVE: Normal Inspection - Neurological Neurological Exam: POSITIVE: Alert, Oriented x 3, CN II-XII Intact, Speech Intact / Clear, Moves All Extremities Equally - Psychiatric Psychiatric Exam: POSITIVE: Normal Affect - Integumentary Integumentary Exam: POSITIVE: Normal Color Patient Problems - Patient Problem List (1) Status post right knee replacement Current Visit: Yes Status: Acute Code(s): Z96.651 - Presence of right artificial knee joint Category: Surgical (2) Benign essential hypertension Current Visit: No Status: Chronic Onset Date: 03/17/12 Code(s): I10 - Essential (primary) hypertension Category: Medical (3) Hyperlipidemia Current Visit: No Status: Chronic Onset Date: 01/29/15 Code(s): E78.5 - Hyperlipidemia, unspecified Qualifiers: Hyperlipidemia type: mixed hyperlipidemia Qualified Code(s): E78.2 - Mixed hyperlipidemia Category: Medical
[2019-03-04] MEDS ORDERED: Calcium/Vit D 600mg/400u Tab 1 TAB TABLET PO SCH (09:00)
--- NOTE | 2019-03-04 11:27 | ORTHO.PROG ---
Last Taken Vital Signs: Vital Signs - Last Taken Temperature 97.9 F 03/04/19 07:01 Pulse Rate 87 03/04/19 07:01 Respiratory Rate 14 03/04/19 07:01 Blood Pressure 114/76 03/04/19 07:01 Pulse Ox 93 03/04/19 07:01 Subjective: Patient seen in therapy this morning seems to be doing well. Objective: Patient's dressing is in place motor and sensory exam is nonfocal mild bruising about the knee. No evidence of infection. Patient with a 1+ effusion. No calf, popliteal adductor hiatus or thigh pain. Vital Signs (24 hrs) 03/03/19 13:00 03/03/19 16:50 03/03/19 19:00 Temperature 98.7 F 98.6 F Pulse Rate [Pulse Oximeter] 97 89 102 H Respiratory Rate 16 16 16 Blood Pressure [Left Arm] 111/53 Blood Pressure [Right Arm] 93/54 Pulse Ox 92 91 03/03/19 20:04 03/04/19 00:03 03/04/19 07:00 Temperature 97.5 F 98.0 F Pulse Rate [Pulse Oximeter] 102 H 98 85 Respiratory Rate 16 22 14 Blood Pressure [Left Arm] 112/58 128/75 Blood Pressure [Right Arm] Pulse Ox 96 94 03/04/19 07:01 Temperature 97.9 F Pulse Rate [Pulse Oximeter] 87 Respiratory Rate 14 Blood Pressure [Left Arm] 114/76 Blood Pressure [Right Arm] Pulse Ox 93 Assessment: Right total knee replacement doing well, making progress with therapy Plan: Patient will continue with above course of physical therapy and occupational therapy. Oral pain medications as needed. Deep vein thromboses with pneumatic sequentials and aspirin.
[2019-03-04 11:37] VITALS: BP 102/64; TEMP 97.2; O2SAT 97
--- NOTE | 2019-03-06 14:52 | PT AM DAY ---
Diagnosis : Right Total Knee Arthroplasty AM - Physical Therapy S: The patient reports he feels like he is just not ready to go home yet. O: The patient required min assist for bed mobility due to his right lower extremity followed by ambulating from his room to the elevator. The patient was then transferred downstairs to therapy where he received an application of moist heat pack x20 minutes including set up followed by micro-current massage to the right knee for edema control. He performed therapeutic exercises and functional activities including quad sets, heel slides, short arc quads, hip abduction/adduction, NuStep x10 minutes, sit to stands, and box step ups. The patient was able to ambulate approximately 50 feet before requiring a wheelchair and being taken up to his room. A: On the NuStep, the patient was only able to get approximately 70 degrees of flexion. The therapist did discuss with the patient the importance of regaining motion at this time. He does require verbal encouragement to participate. P: Continue seeing patient BID during the week and one time per day over the weekend for transfers, ambulation, and range of motion/strengthening exercises. LEIGHA
== END 2019-03-04 15:22 | disposition swing bed (61) | DRG 470 ==
LOC: OPS 02-28 06:15 → MED/SURG 02-28 12:58
PROVIDERS: ADMIT Orthopaedic Surgery; ATTEND Orthopaedic Surgery